=== PATIENT | male | born 1975 | race Caucasian/White ===

== ENCOUNTER 2018-08-18 01:48 | Emergency (ER) | payer OTHER ==
[~2018-08-18] VITALS: Ht 182.9 cm; Wt 104.3 kg
[2018-08-18] MEDS ORDERED: MAGIC MOUTHWASH PO (02:54)
[2018-08-18] MEDS ORDERED: IBUPROFEN 800800 MG PO (02:54)
[2018-08-18] MEDS ORDERED: NORCO 5-325 TA1 EACH PO (02:54)
[2018-08-18 03:09] VITALS: BP 151/90
== END 2018-08-18 03:11 | disposition home or self-care (01) ==
LOC: M.ERS 01:48
DX: S02.5XXA Fracture of tooth (traumatic), initial encounter for closed fracture (principal); X58.XXXA Exposure to other specified factors, initial encounter; Y93.89 Activity, other specified; Y92.89 Other specified places as the place of occurrence of the external cause; Y99.8 Other external cause status; I10 Essential (primary) hypertension